=== PATIENT | female | born 1945 | race Caucasian/White ===

== ENCOUNTER 2019-09-16 21:36 | Emergency (ER) | payer MEDICARE, OTHER ==
[~2019-09-16] VITALS: Ht 160 cm; Wt 70.8 kg
--- NOTE | 2019-09-16 21:38 | ER.PDOC ---
General Chief Complaint: Requesting Medical Care Stated Complaint: FALL Time seen by MD: 21:31 Source: patient, EMS Exam Limitations: no limitations History of Present Illness Initial Comments patient tripped over equipment in garage falling backward striking head on plastic wagon; no LOC but she was dazed; she is not on blood thinners but wants to be checked out Occurred: just prior to arrival Where: home Severity: mild Location: occipital Method of Injury: fell Associated symptoms: Dazed Remembers: injury, coming to hospital Allergies: Coded Allergies: hydrocodone (Unverified Allergy, Unknown, VOMITTING, 08/14/17) Review of Systems Constitutional: no symptoms reported Eyes: no symptoms reported Ears, Nose, Mouth, Throat: no symptoms reported Respiratory: no symptoms reported Cardiovascular: no symptoms reported Gastrointestinal: no symptoms reported Musculoskeletal: no symptoms reported Skin: no symptoms reported Psychiatric/Neurological: headache Physical Exam General Appearance: Alert, No Apparent Distress, WD/WN Head: No Evidence of Injury Neck: non-tender Cardiovascular/Respiratory: Regular Rate, Rhythm, Normal Breath Sounds, No Respiratory Distress Gastrointestinal: Normal Bowel Sounds, Non Tender Extremities: Non-Tender, No Pedal Edema, No Calf Tenderness NEURO/PSYCH: Alert, Oriented x3, Cooperative, Interactive, Mood/affect nml Cranial Nerves: Normal Hearing, Normal Speech, PERRL Motor/Sensory: No Motor Deficit [place] Coma Score Best Eye Response: (4) Open Spontaneously Best Verbal Response: (5) Oriented Best Motor Response: (6) Obeys Commands Results/Orders Results/Orders Orders - KESHIA SAMAYOA,Pertuss(Acell),Tet Vac/Pf (Adacel V (09/16/19 22:00) Ct Head Wo Contrast (09/16/19 21:37) Ct Cervical Spine (09/16/19 21:37) Vital Signs Date Time Temp Pulse Resp B/P (MAP) Pulse Ox O2 Delivery O2 Flow Rate FiO2 09/16/19 21:45 18 09/16/19 21:40 98.8 98 18 96 09/16/19 21:40 98.8 98 18 09/16/19 21:40 98.8 98 18 96 Room Air Administered Medications Medications (Trade) Dose Ordered Sig/Kelsey Route PRN Reason Start Time Stop Time Status Last Admin Dose Admin Diphtheria/ Tetanus/Acell Pertussis (Adacel Vial) 0.5 ml ONCE ONCE IM 09/16/19 22:00 09/16/19 22:01 UNV 09/16/19 22:09 0.5 ML EKG/XRAY/CT/US CT Comments: CT head and neck show nothing acute Departure Time of Disposition: 22:38 Disposition: 01 HOME, SELF-CARE Impression: Primary Impression: Fall Additional Impression: Closed head injury Condition: Stable Patient Instructions: Head Injury, Adult Additional Instructions: Home. Rest. Alternate Tylenol and Motrin per package instructions for pain every 4-6 hours. Return to ER if you experience confusion, acute visual change/loss, uncontrollable vomiting or any other concerns. Follow up with your doctor next week. Duration or Time Spent with Pa: 20 min Problem Qualifiers Primary Impression: Fall Encounter type: initial encounter Qualified Codes: W19.XXXA - Unspecified fall, initial encounter Additional Impression: Closed head injury Encounter type: initial encounter Qualified Codes: S09.90XA - Unspecified injury of head, initial encounter KESHIA SAMAYOA DO Sep 16, 2019 21:38
[2019-09-16 21:40] VITALS: BP 174/76
--- NOTE | 2019-09-16 21:44 | NUR ---
TO CT PATIENT TO CT VIA STRETCHER WITH [place],CT
[2019-09-16] MEDS ORDERED: ADACEL VIAL IM ONE ×2 (22:00→22:03)
--- NOTE | 2019-09-16 22:26 | DIREP ---
PROCEDURE:CT HEAD OR BRAIN W/O CONTRAST COMPARISON:[facility], CT, CT HEAD BRAIN [facility]&W/O, 04/17/2016, 01:50 PM. INDICATIONS:head injury TECHNIQUE:CT images were created without intravenous contrast. FINDINGS: VENTRICLES:The ventricles are normal in size and configuration. CEREBRUM:No findings of acute cortical infarct or acute intracranial hemorrhage. No midline shift or mass effect. No abnormal extra-axial fluid collection. Benign-appearing calcifications of the deep guadarr[place] matter on the right. This is unchanged. CEREBELLUM:Negative. BRAINSTEM:Negative. BASAL CISTERNS:Negative. HEMORRHAGE:No MASS LESION:No ACUTE INFARCT:No SKULL:Normal. SINUSES:Normal. OTHER:None CONCLUSION:No acute intracranial findings. Dictated by: Dustin Quintana M.D. on 09/16/2019 at 10:23 PM
--- NOTE | 2019-09-16 22:32 | DIREP ---
PROCEDURE:CT CERVICAL SPINE WITHOUT CONTRAST TECHNIQUE:Axial cuts were obtained through the cervical spine. The images were viewed at bone and soft tissue settings. Sagittal and coronal reconstructions are provided. COMPARISON:None. INDICATIONS:fall injury FINDINGS: ALIGNMENT:Straightening of the spine, may be positional or secondary to muscle spasm. VERTEBRAE:Vertebral body heights are within normal limits. Facets are congruent. Facet degenerative changes noted at multiple levels. Bilateral C2-3 facet osseous fusion noted. Prominent left facet arthropathy C4-5, prominent right facet arthropathy C3-4, C5-6. PARASPINAL AREA:Normal. OTHER:No additional findings. CERVICAL DISC LEVELS C2-C3:No significant foraminal or spinal stenosis. C3-C4:Prominent right facet arthropathy. Mild right uncovertebral arthropathy. Mild left facet and uncovertebral arthropathy. Mild bilateral foraminal stenosis without spinal stenosis. C4-C5:Prominent left facet arthropathy. Mild right facet arthropathy. Mild uncovertebral arthropathy bilaterally. Mild left foraminal stenosis. Right foramen and spinal canal within normal limits. C5-C6:Severe right and moderate left uncovertebral arthropathy. Mild left and moderate to severe right facet arthropathy. Moderate bilateral foraminal stenosis without spinal stenosis. C6-C7:Moderate left uncovertebral arthropathy. Left-sided endplate degenerative changes. Mild bilateral facet arthropathy. Severe left foraminal stenosis. Right foramen and spinal canal within normal limits. C7-T1:Mild to moderate left facet arthropathy. No significant foraminal or spinal stenosis. CONCLUSION: 1. No visible acute fracture. 2. Multilevel degenerative changes as detailed above. Dictated by: Dustin Quintana M.D. on 09/16/2019 at 10:25 PM
[2019-09-16 22:40] VITALS: BP 139/50
[2019-09-16] MEDS ORDERED: ZOFRAN IV STA (22:40)
[2019-09-16] MEDS ORDERED: SUBLIMAZE IV STA (22:40)
[2019-09-16] MEDS ORDERED: ZOFRAN ONE (22:50)
[2019-09-16] MEDS ORDERED: SUBLIMAZE ONE (22:50)
--- NOTE | 2019-09-16 23:25 | NUR ---
IV DC'D TIP INTACT, NO BLEEDING
[2019-09-16 23:30] VITALS: BP 130/64
== END 2019-09-16 23:30 | disposition home or self-care (01) ==
LOC: EDBD 21:36 → ER 21:36
DX: S09.90XA Unspecified injury of head, initial encounter (principal); Z88.5 Allergy status to narcotic agent; W01.0XXA Fall on same level from slipping, tripping and stumbling without subsequent striking against object, initial encounter; Y93.89 Activity, other specified; Y92.89 Other specified places as the place of occurrence of the external cause; Y99.8 Other external cause status
CPT/HCPCS: 70450; 72125; 90471; 90715; 96374; 96375; 99285; J2405; J3010

== ENCOUNTER → 2021-04-29 | Outpatient (CLI) | payer MEDICARE, OTHER | END | disposition home or self-care (01) | LOC: NPLAB 13:44 | PROVIDERS: ATTEND Specialist | DX: R05.9 Cough, unspecified (principal); Z20.822 Contact with and (suspected) exposure to COVID-19 | CPT/HCPCS: 87633 ==